=== PATIENT | female | born 1955 | race Two or more races ===

== ENCOUNTER 2024-05-07 08:34 | Outpatient (CLI) | payer OTHER | END 2024-05-07 08:35 | disposition home or self-care (01) | LOC: NUCLEAR 08:34 | PROVIDERS: ATTEND Specialist | DX: I25.9 Chronic ischemic heart disease, unspecified (principal); I65.22 Occlusion and stenosis of left carotid artery; E11.9 Type 2 diabetes mellitus without complications; E78.5 Hyperlipidemia, unspecified; I11.9 Hypertensive heart disease without heart failure ==

== ENCOUNTER 2024-05-08 09:30 | Outpatient (CLI) | payer OTHER | END 2024-05-08 09:31 | disposition home or self-care (01) | LOC: NUCLEAR 09:30 | PROVIDERS: ATTEND Specialist | DX: I73.9 Peripheral vascular disease, unspecified (principal); I25.9 Chronic ischemic heart disease, unspecified; E11.9 Type 2 diabetes mellitus without complications; E78.5 Hyperlipidemia, unspecified; I11.9 Hypertensive heart disease without heart failure ==

== ENCOUNTER 2024-06-17 07:08 | Outpatient (CLI) | payer OTHER | END 2024-06-17 07:11 | disposition home or self-care (01) | LOC: NUCLEAR 07:08 | PROVIDERS: ATTEND Specialist | DX: I20.9 Angina pectoris, unspecified (principal) | CPT/HCPCS: 78452; 93017; A9500 ==